=== PATIENT | female | born 1985 | race Caucasian/White ===

== ENCOUNTER 2020-01-31 23:30 | Inpatient (IN) | payer OTHER ==
[~2020-01-31] VITALS: Ht 180.3 cm; Wt 116.9 kg
[2020-02-01] VITALS (7 sets, daily range): BP systolic 117–131; BP diastolic 63–77
[2020-02-01] MEDS ORDERED: SODIUM CHLORIDE 0.9% 2,000 ML IV ONE (01:15)
[2020-02-01] MEDS ORDERED: KETOROLAC TROMETH 15 mg/ml 1ML VL IV ONE ×4 (01:15→12:45)
[2020-02-01] MEDS ORDERED: ONDANSETRON HCL 4 MG/2 ML VIAL IV ONE (01:15)
[2020-02-01 01:33] LABS: Basophils # (auto) 0.1 10 ^3/uL (0-0.2); Basophils % (auto) 0.4 % (0.0-2.0); Eosinophils # (auto) 0.2 10 ^3/uL (0-0.8); Eosinophils % (auto) 1.6 % (0.0-7.0); Hematocrit 43.1 % (36.0-46.0); Hemoglobin 14.2 g/dL (12.2-16.2); Lymphocytes # (auto) 1.7 10 ^3/uL (0.4-5.4); Lymphocytes % (auto) 12.7 % (10.0-50.0); Mean Corpuscular Hemoglobin 30.3 pg (28.0-32.0); Mean Corpuscular Hgb Conc. 32.9 g/dL (32.0-36.0); Mean Corpuscular Volume 92.2 fL (80.0-100.0); Monocytes # (auto) 0.9 10 ^3/uL (0-1.3); Monocytes % (auto) 6.3 % (0.0-12.0); Neutrophils # (auto) 10.8 10 ^3/uL (1.6-8.6); Nucleated Red Blood Cells % 0.2 %; Platelet Count (auto) 280 10^3/uL (140-450); Red Blood Cells 4.67 10^6/uL (4.0-5.20); Red Cell Distribution Width 13.2 % (11.8-14.3); White Blood Cell 13.7 10^3/uL (4.4-10.8)
[2020-02-01 01:49] LABS: Albumin 3.7 g/dL (3.4-5.0); BUN/Creatinine Ratio 10.9; Calcium 8.9 mg/dL (8.5-10.1); Potassium 3.7 mmol/L (3.5-5.1)
[2020-02-01 01:52] LABS: Bilirubin, Total 0.3 mg/dL (0.2-1.0); Total Protein 7.7 g/dL (6.4-8.2)
[2020-02-01] MEDS ORDERED: IOHEXOL 300 MG/ML 100ML BOTTLE IJ ONE (02:50)
[2020-02-01] MEDS ORDERED: KETOROLAC TROMETH 30 MG/ML 1ML VIAL ONE (03:16)
[2020-02-01] MEDS ORDERED: levoFLOXacin 750MG 150 ML IV ONE (03:45)
[2020-02-01] MEDS ORDERED: metroNIDAZOLE 500MG/100ML 100 ML IV ONE (03:45)
[2020-02-01] MEDS ORDERED: DOCUSATE SOD 100 MG CAP PO PRN (04:30)
[2020-02-01] MEDS ORDERED: LORazepam 0.5 MG TAB PO PRN (04:30)
[2020-02-01] MEDS ORDERED: ACETAMINOPHEN 325 MG TAB PO PRN (04:30)
--- NOTE | 2020-02-01 05:55 | NUR ---
PATIENT ARRIVED TO THE UNIT, ALERT AND ORIENTED. EXPLAINED TO PATIENT THE USE OF CALL LIGHT, DISCUSSED POC. PATIENT DENIES PAIN AT THIS MOMENT. UNLABORED BREATHING. CALL LIGHT WITH IN REACH, BED ON LOWEST POSITION, SIDE RAILS UP X2.
[2020-02-01] MEDS: D5W/SOD CHL 0.45% 1,000 ML IV SCH ×2 (06:09→17:28)
[2020-02-01 07:42] LABS: Basophils # (auto) 0.1 10 ^3/uL (0-0.2); Basophils % (auto) 1.1 % (0.0-2.0); Eosinophils # (auto) 0.3 10 ^3/uL (0-0.8); Eosinophils % (auto) 3.1 % (0.0-7.0); Hematocrit 37.3 % (36.0-46.0); Hemoglobin 12.5 g/dL (12.2-16.2); Lymphocytes # (auto) 2.3 10 ^3/uL (0.4-5.4); Lymphocytes % (auto) 22.2 % (10.0-50.0); Mean Corpuscular Hgb Conc. 33.7 g/dL (32.0-36.0); Monocytes # (auto) 0.9 10 ^3/uL (0-1.3); Monocytes % (auto) 8.2 % (0.0-12.0); Neutrophils # (auto) 6.8 10 ^3/uL (1.6-8.6); Neutrophils % (auto) 65.4 % (37.0-80.0); Platelet Count (auto) 253 10^3/uL (140-450); Red Blood Cells 4.05 10^6/uL (4.0-5.20); Red Cell Distribution Width 13.6 % (11.8-14.3); White Blood Cell 10.4 10^3/uL (4.4-10.8)
[2020-02-01 07:57] LABS: BUN/Creatinine Ratio 11.8; Calcium 7.8 mg/dL (8.5-10.1); Potassium 3.5 mmol/L (3.5-5.1)
--- NOTE | 2020-02-01 08:00 | NUR ---
Opening Shift Note Assumed care of patient, who is alert and oriented x4. No S/S of distress/SOB or pain. Bed is low, locked with 2x side rails up. Call light is within reach. Instructed on POC and to call for assist PRN, will continue to monitor for changes Q1hr and PRN.
[2020-02-01] MEDS: HYDROcodone-ACET 5/325MG TAB PO PRN ×2 (09:07→19:54)
[2020-02-01] MEDS ORDERED: POVIDONE IODINE 10 % TOPICAL OINT 30GM TOP ONE (10:28)
[2020-02-01] MEDS ORDERED: levoFLOXacin 500MG 100 ML IV ONE (10:31)
[2020-02-01] MEDS ORDERED: fentaNYL CITRATE 100 MCG/2 ML VL ONE (10:37)
--- NOTE | 2020-02-01 10:40 | NUR ---
Patient taken to pre-op for scheduled surgery with Dr. Ha. No distress noted upon departure.
[2020-02-01] MEDS ORDERED: SUCCINYLCHOLINE CHLORIDE 20 MG/ML 10ML VIAL IV ONE (10:42)
[2020-02-01 10:43] LABS: INR 1.05 (0.9-1.15); Partial Thromboplastin Time 33.6 sec (23.64-32.05)
[2020-02-01] MEDS ORDERED: MIDAZOLAM HCL 1MG/1ML-2 ML VIAL ONE (10:49)
[2020-02-01] MEDS ORDERED: ROCURONIUM 10MG/ML 10ML VIAL IV ONE (10:54)
[2020-02-01] MEDS ORDERED: DexAMETHasone SOD PHOS 10MG/1ML VIAL INJ ONE (11:41)
[2020-02-01] MEDS ORDERED: ONDANSETRON HCL 4 MG/2 ML VIAL ONE (11:46)
--- NOTE | 2020-02-01 12:25 | NUR ---
Dr. Howard at nurses station Updated MD on POC. New orders received (see orders).
[2020-02-01] MEDS ORDERED: METOCLOPRAMIDE HCL 5MG/ml INJ 2ml VIAL IV PRN (12:30)
[2020-02-01] MEDS ORDERED: HYDROmorphone HCL 2 MG/ML VL IV PRN (12:30)
[2020-02-01] MEDS: ONDANSETRON HCL 4 MG/2 ML VIAL IV PRN ×2 (12:45→19:53)
[2020-02-01] MEDS: HYDROmorphone HCL 2 MG/ML VL IV PRN ×2 (12:45→13:00)
--- NOTE | 2020-02-01 13:31 | NUR ---
Patient back in room S/p aMry griffith with Dr. Ha. Patient alert and oriented. C/O abd pain at this time. Will medicate per MD order when due. Per report patient received Dilaudid at 1300. Patient has 3 abdominal incisions that are C/D/I with abdominal binder in place. Per MD orders may advance to clear liquid diet. Bed is low, locked with 2x side rails up. Call light is within reach. Will continue to monitor.
[2020-02-01] MEDS: metroNIDAZOLE 500MG/100ML 100 ML IV SCH ×2 (13:57→19:53)
[2020-02-01] MEDS: MORPHINE SULFATE 4 MG/ML SYR/VIAL IV PRN ×2 (17:11→21:33)
--- NOTE | 2020-02-01 19:00 | NUR ---
opening note PATIENT AWAKE, ALERT AND ORIENTED, UNLABORED BREATHING, C/O MILD PAIN, D/T SHE WAS UP AND WALKING EARLIER. BINDER IN PLACE, DRESSING DRY AND INTACT. PATIENT IS HAVING DINNER, DENIES NAUSEA, SHE IS TOLERATING WELL. REINFORCED THE NEED TO USE THE CALL LIGHT BEFORE GETTING UP FOR SAFETY. WILL CONTINUE TO MONITOR
--- NOTE | 2020-02-01 22:39 | NUR ---
PATIENT IS RESTING, PAIN MANAGED BY MEDICATION.
[2020-02-02] MEDS: HYDROcodone-ACET 5/325MG TAB PO PRN ×2 (00:54→15:46)
--- NOTE | 2020-02-02 00:58 | NUR ---
PATIENT WALKED TO THE RESTROOM, SHE IS IN PAIN FROM SURGERY, HOWEVER WALKING WITH STEADY GATE.
[2020-02-02] MEDS: MORPHINE SULFATE 4 MG/ML SYR/VIAL IV PRN ×4 (04:29→21:51)
[2020-02-02] MEDS: metroNIDAZOLE 500MG/100ML 100 ML IV SCH ×3 (04:45→21:52)
[2020-02-02 05:00] VITALS: BP 126/72
[2020-02-02 07:16] LABS: Basophils # (auto) 0 10 ^3/uL (0-0.2); Basophils % (auto) 0.2 % (0.0-2.0); Eosinophils # (auto) 0.1 10 ^3/uL (0-0.8); Eosinophils % (auto) 0.6 % (0.0-7.0); Hematocrit 40.7 % (36.0-46.0); Hemoglobin 13.3 g/dL (12.2-16.2); Lymphocytes # (auto) 1.4 10 ^3/uL (0.4-5.4); Mean Corpuscular Hemoglobin 30.9 pg (28.0-32.0); Mean Corpuscular Hgb Conc. 32.7 g/dL (32.0-36.0); Mean Corpuscular Volume 94.7 fL (80.0-100.0); Monocytes % (auto) 7.5 % (0.0-12.0); Neutrophils # (auto) 11.3 10 ^3/uL (1.6-8.6); Neutrophils % (auto) 81.7 % (37.0-80.0); Platelet Count (auto) 239 10^3/uL (140-450); Red Blood Cells 4.29 10^6/uL (4.0-5.20); Red Cell Distribution Width 13.5 % (11.8-14.3); White Blood Cell 13.9 10^3/uL (4.4-10.8)
[2020-02-02 07:37] LABS: Potassium 3.9 mmol/L (3.5-5.1)
[2020-02-02 07:46] LABS: BUN/Creatinine Ratio 9.3; Bilirubin, Total 0.6 mg/dL (0.2-1.0); Calcium 8.1 mg/dL (8.5-10.1); Total Protein 6.5 g/dL (6.4-8.2)
[2020-02-02 09:00] VITALS: BP 132/57
[2020-02-02] MEDS: levoFLOXacin 500MG 100 ML IV SCH (09:07)
[2020-02-02] MEDS: D5W/SOD CHL 0.45% 1,000 ML IV SCH ×2 (09:07→22:45)
[2020-02-02] MEDS: ONDANSETRON HCL 4 MG/2 ML VIAL IV PRN ×3 (12:19→21:52)
[2020-02-02 13:00] VITALS: BP 133/71
--- NOTE | 2020-02-02 16:10 | NUR ---
IS at bedside, teaching explained, patient verbalized understanding.
[2020-02-02 17:00] VITALS: BP 116/63
--- NOTE | 2020-02-02 19:25 | NUR ---
Opening Shift Note Received report from Marek ORTEGA. Assumed care of patient, awake and alert. No S/S of distress/SOB, still with moderate abdominal pain. Instructed on POC and to call for assist PRN, will continue to monitor for changes Q1hr and PRN.
[2020-02-02 22:00] VITALS: BP_SYST 125; BP_SYST 133; BP_DIAS 55; BP_DIAS 95
[2020-02-03] MEDS: ONDANSETRON HCL 4 MG/2 ML VIAL IV PRN ×5 (03:20→20:38)
[2020-02-03] MEDS: MORPHINE SULFATE 4 MG/ML SYR/VIAL IV PRN ×5 (03:21→20:38)
[2020-02-03 05:00] VITALS: BP 128/73
[2020-02-03] MEDS: metroNIDAZOLE 500MG/100ML 100 ML IV SCH ×3 (06:01→22:01)
[2020-02-03 06:54] LABS: Basophils # (auto) 0.1 10 ^3/uL (0-0.2); Basophils % (auto) 0.6 % (0.0-2.0); Eosinophils # (auto) 0.2 10 ^3/uL (0-0.8); Eosinophils % (auto) 1.5 % (0.0-7.0); Hematocrit 38.2 % (36.0-46.0); Lymphocytes # (auto) 1.4 10 ^3/uL (0.4-5.4); Lymphocytes % (auto) 12.6 % (10.0-50.0); Mean Corpuscular Hemoglobin 31.2 pg (28.0-32.0); Mean Corpuscular Hgb Conc. 33.9 g/dL (32.0-36.0); Mean Corpuscular Volume 92.1 fL (80.0-100.0); Monocytes # (auto) 1.2 10 ^3/uL (0-1.3); Monocytes % (auto) 10.1 % (0.0-12.0); Neutrophils # (auto) 8.5 10 ^3/uL (1.6-8.6); Neutrophils % (auto) 75.2 % (37.0-80.0); Nucleated Red Blood Cells % 0.1 %; Platelet Count (auto) 235 10^3/uL (140-450); Red Blood Cells 4.15 10^6/uL (4.0-5.20); Red Cell Distribution Width 13.4 % (11.8-14.3); White Blood Cell 11.4 10^3/uL (4.4-10.8)
[2020-02-03 07:13] LABS: Albumin 2.8 g/dL (3.4-5.0); Calcium 7.7 mg/dL (8.5-10.1); Potassium 3.5 mmol/L (3.5-5.1)
[2020-02-03 07:16] LABS: Bilirubin, Total 0.6 mg/dL (0.2-1.0); Total Protein 6.4 g/dL (6.4-8.2)
--- NOTE | 2020-02-03 07:35 | NUR ---
Patient medicated 2x for nausea and post op pain. Patient resting at this time with eyes closed. Endorsed care to Chanel ORTEGA.
[2020-02-03 08:00] VITALS: BP 121/69
--- NOTE | 2020-02-03 08:23 | NUR ---
PAIN PATIENT COMPLAINT OF PAIN 10/10 TO ABDOMEN. PAIN MEDICATION AND ZOFRAN, (PATIENT REQUESTED FOR NAUSEA) ADMINISTERED. WILL CONTINUE TO MONITOR.
[2020-02-03 08:40] VITALS: BP 121/69
--- NOTE | 2020-02-03 08:52 | NUR ---
PAIN REASSESSMENT PAIN REPORTS PAIN AT A 4/10. PER PATIENT, THIS PAIN LEVEL IS TOLERABLE AND NO FURTHER PAIN MEDICATIONS ARE REQUESTED. WILL CONTINUE TO MONITOR
[2020-02-03] MEDS: D5W/SOD CHL 0.45% 1,000 ML IV SCH ×2 (09:44→23:22)
[2020-02-03] MEDS: levoFLOXacin 500MG 100 ML IV SCH (09:44)
--- NOTE | 2020-02-03 09:47 | NUR ---
DR VASQUEZ ON UNIT REGARDING PATIENT. Addendum: 02/03/20 at 1033 by JOSE MORRIS RN RN INFORMED DR VASQUEZ OF PATIENTS POTASSIUM OF 3.5. NO ORDERS RECEIVED.
[2020-02-03 12:00] VITALS: BP 146/67
--- NOTE | 2020-02-03 12:19 | NUR ---
PAIN PATIENT STATES PAIN IS A 9/10 IN HER ABDOMEN. PAIN MEDICATION GIVEN, PATIENT REPOSITIONED, AND WILL CONTINUE TO MONITOR
--- NOTE | 2020-02-03 12:49 | NUR ---
PAIN REASSESSMENT PATIENT REPORTS PAIN IS 3/10. PATIENT IS COMFORTABLE WITH THIS PAIN LEVEL AND DOES NOT WANT ADDITIONAL PAIN MEDICATION AT THIS TIME. WILL CONTINUE TO MONITOR
--- NOTE | 2020-02-03 15:37 | NUR ---
Nutrition Assessment Notes Please refer to link for full assessment notes. Est Energy needs ABW 94 [id number] kcals (20-23 kcal/kgABW) Est Protein needs: 94-103 gms/day (1.0-1.1 gm/kgAdjBW) Will continue to monitor and reassess prn. Addendum: 02/03/20 at [address] Amended: Links added.
[2020-02-03] MEDS ORDERED: NEOSTIGMINE 1 MG/ML INJ (10mg/10ML VIAL) IV ONE (15:58)
[2020-02-03] MEDS ORDERED: GLYCOPYRROLATE 0.2 MG/ML 1ML VIAL IV ONE (15:58)
[2020-02-03 17:00] VITALS: BP 130/69
[2020-02-03] MEDS: HYDROcodone-ACET 5/325MG TAB PO PRN (18:21)
--- NOTE | 2020-02-03 18:21 | NUR ---
PAIN ASSESSMENT PATIENT COMPLAINT THAT ABDOMINAL PAIN IS A 6/10. PATIENT REQUESTING NORCO. WILL CONTINUE TO MONITOR
--- NOTE | 2020-02-03 19:10 | NUR ---
Opening Shift Note Received report from Chanel ORTEGA. Assumed care of patient, awake and alert. No S/S of distress/SOB, pain tolerable at this time. Instructed on POC and to call for assist PRN, will continue to monitor for changes Q1hr and PRN.
[2020-02-03 21:00] VITALS: BP 122/69
[2020-02-04] MEDS: ONDANSETRON HCL 4 MG/2 ML VIAL IV PRN ×2 (00:54→06:12)
[2020-02-04] MEDS: MORPHINE SULFATE 4 MG/ML SYR/VIAL IV PRN ×3 (00:54→10:43)
[2020-02-04 05:00] VITALS: BP 127/68
[2020-02-04 06:07] LABS: Basophils # (auto) 0.1 10 ^3/uL (0-0.2); Eosinophils # (auto) 0.4 10 ^3/uL (0-0.8); Eosinophils % (auto) 3.9 % (0.0-7.0); Hematocrit 38.8 % (36.0-46.0); Hemoglobin 13.1 g/dL (12.2-16.2); Lymphocytes # (auto) 1.7 10 ^3/uL (0.4-5.4); Lymphocytes % (auto) 18.8 % (10.0-50.0); Mean Corpuscular Hemoglobin 30.9 pg (28.0-32.0); Mean Corpuscular Hgb Conc. 33.8 g/dL (32.0-36.0); Mean Corpuscular Volume 91.5 fL (80.0-100.0); Monocytes % (auto) 10.8 % (0.0-12.0); Neutrophils % (auto) 65.5 % (37.0-80.0); Platelet Count (auto) 258 10^3/uL (140-450); Red Blood Cells 4.24 10^6/uL (4.0-5.20); Red Cell Distribution Width 13.5 % (11.8-14.3); White Blood Cell 9.2 10^3/uL (4.4-10.8)
[2020-02-04] MEDS: metroNIDAZOLE 500MG/100ML 100 ML IV SCH ×2 (06:13→14:00)
[2020-02-04 06:24] LABS: Albumin 2.7 g/dL (3.4-5.0); Calcium 8.2 mg/dL (8.5-10.1); Potassium 3.4 mmol/L (3.5-5.1)
[2020-02-04 06:30] LABS: Bilirubin, Total 0.8 mg/dL (0.2-1.0); Total Protein 6.3 g/dL (6.4-8.2)
--- NOTE | 2020-02-04 07:20 | NUR ---
Opening shift note assumed care of patient from NOC JORDAN Edwards. Patient is AOx4, no s/s of distress noted. Bed is in lowest locked position, side rails up x2, call light within reach. Updated her on plan of care, patient verbalized understanding. I will continue to monitor Q1hr and PRN.
[2020-02-04 09:00] VITALS: BP 151/77
--- NOTE | 2020-02-04 09:00 | NUR ---
Patient complaint of pain patient stated " i have abdominal pain 04/10. I want to take the morphine for the pain." I will administer pain medication as prescribed. I will continue to monitor Q1HR and PRN.
--- NOTE | 2020-02-04 09:10 | NUR ---
Physician Rounding Dr. Howard at bedside. Updated him on patient status. New orders received, I will follow through with orders.
[2020-02-04] MEDS ORDERED: POTASSIUM CHL 20 Meq TABLET PO ONE (09:15)
[2020-02-04] MEDS: levoFLOXacin 500MG 100 ML IV SCH (10:43)
[2020-02-04] MEDS: D5W/SOD CHL 0.45% 1,000 ML IV SCH (12:21)
[2020-02-04 12:31] VITALS: BP 117/54
--- NOTE | 2020-02-04 14:30 | NUR ---
Discharge Discharge instructions given as ordered. Encourage to follow up with PMD as instructed. All questions and concerns addressed. Patient verbalized understanding. IV removed with catheter intact, pressure dressing applied. Patient taken to vehicle via wheelchair with all personal belongings, accompanied by staff member. No distress noted at time of departure.
== END 2020-02-04 14:30 | disposition home or self-care (01) | DRG 263 ==
LOC: EDBD 23:30 → ER 23:34 → OVERFLOW 23:35 → WEST WING 02-01 04:45
PROVIDERS: ADMIT Hospitalist; ATTEND Internal Medicine
PROC: 0FT44ZZ Resection of Gallbladder, Percutaneous Endoscopic Approach (ICD-10-PCS; principal; 2020-02-01 11:11)
DX: K80.00 Calculus of gallbladder with acute cholecystitis without obstruction (principal); E44.0 Moderate protein-calorie malnutrition; E66.01 Morbid (severe) obesity due to excess calories; E88.09 Other disorders of plasma-protein metabolism, not elsewhere classified; K44.9 Diaphragmatic hernia without obstruction or gangrene; Z90.49 Acquired absence of other specified parts of digestive tract; Z68.36 Body mass index [BMI] 36.0-36.9, adult
CPT/HCPCS: 36415; 71045; 74177; 76705; 80048; 80053; 82150; 83690; 84702; 85025; 85610; 85730; 86850; 86900; 86901; 93005; 96361; 96365; 96375; G0378; J0330; J1100; J1885; J1956; J2250; J2405; J3490